=== PATIENT | male | born 1935 | race Caucasian/White ===

== ENCOUNTER 2018-05-23 14:43 | Emergency (ER) | payer MEDICARE, BC, OTHER ==
[~2018-05-23] VITALS: Ht 172.7 cm; Wt 74.1 kg
[2018-05-23 14:47] VITALS: Ht 172.7 cm; Wt 74.1 kg
[2018-05-23] MEDS ORDERED: ARICEPT23 MG (14:49)
[2018-05-23] MEDS ORDERED: AUGMENTIN 875-11 TAB PO (16:17)
[2018-05-23 16:33] VITALS: BP 145/82
== END 2018-05-23 16:34 | disposition home or self-care (01) ==
LOC: D.ER 14:43
DX: S40.871A Other superficial bite of right upper arm, initial encounter (principal); W50.3XXA Accidental bite by another person, initial encounter; Y93.89 Activity, other specified; Y92.89 Other specified places as the place of occurrence of the external cause; R41.82 Altered mental status, unspecified; F03.90 Unspecified dementia, unspecified severity, without behavioral disturbance, psychotic disturbance, mood disturbance, and anxiety